=== PATIENT | female | born 1985 | race Caucasian/White ===

== ENCOUNTER 2016-10-09 18:41 | Emergency (ER) ==
[2016-10-09 18:46] VITALS: BP 127/84; TEMP 98.4; BMI 27.4
--- NOTE | 2016-10-09 19:21 | ED.PDOC ---
General ED Provider: Dr. LEELA DALTON Chief Complaint: Non-specific Complaint Stated Complaint: patient took marijuna, today, ever since she is not feeling good, week, tired. Time Seen by Physician: 18:30 Mode of Arrival: Ambulance Information Source: Patient Nursing and Triage Documentation Reviewed and Agree: Yes Neurological Complaint Exam - Altered Mental Status Complaint/Exam Current Mental Status: Unresponsiveness, Confusion Onset: Sudden Symptoms Are: Resolved Timing: Intermittent Episodes Lasting: Minutes Initial Severity: Moderate Current Severity: Mild Eye Deviation Present: No Character: Reports: Confusion, Agitation, Responsiveness, Lethargy Aggravating: Reports: Drug abuse, Environmental exposure Alleviating: Reports: None Associated Signs and Symptoms: Reports: Weakness, Headache. Denies: Dizziness, Fever, Illness, Nuchal rigidity, Seizure, Nausea, Vomiting, Recently depressed, Trauma Cardiac Risk Factors: Reports: None CVA Risk Factors: Reports: None Related Surgical History: Reports: None Carotid Bruit Present: No Nystagmus Present: No Gag Reflex Present: Yes Meningeal Signs Positive: No Focal Weakness: Present: None Focal Sensory Loss: Present: None Gait: Unable Romberg Test Positive: No Babinski Sign: Negative Right, Negative Left Signs of Injury: Present: Normal findings Differential Diagnoses: Metabolic Disorder, Hypoglycemia, Overdose Review of Systems - Review Of Systems Constitutional: Reports: No symptoms Eyes: Reports: No symptoms Ears, Nose, Mouth, Throat: Reports: No symptoms Respiratory: Reports: No symptoms Cardiac: Reports: No symptoms GI: Reports: No symptoms : Reports: No symptoms Musculoskeletal: Reports: No symptoms Skin: Reports: No symptoms Neurological: Reports: Headache, Weakness Endocrine: Reports: No symptoms Hematologic/Lymphatic: Reports: No symptoms All Other Systems: Reviewed and Negative Past Medical History - Past Medical History Previously Healthy: Yes Endocrine: Reports: None Cardiovascular: Reports: None Respiratory: Reports: None Hematological: Reports: None Gastrointestinal: Reports: None Genitourinary: Reports: None Neuro/Psych: Reports: None Musculoskeletal: Reports: None Cancer: Reports: None Last Menstrual Period: LAST MONTH - Surgical History General Surgical History: Reports: None - Family History Family History: Reports: None - Social History Smoking Status: Never smoker Hx Substance Use: No Alcohol Screening: None Physical Exam - Physical Exam Appearance: Ill-appearing, Obese Eyes: TRU, EOMI ENT: Ears normal, Nose normal, Oropharynx normal Respiratory: Airway patent, Breath sounds clear, Breath sounds equal, Respirations nonlabored Cardiovascular: RRR, Pulses normal, No rub, No murmur GI/: Soft, Nontender, No masses, Bowel sounds normal, No Organomegaly Musculoskeletal: Normal strength, ROM intact, No edema, No calf tenderness Skin: Warm, Dry, Normal color Neurological: Sensation intact, Alert to verbal Psychiatric: Affect appropriate, Mood appropriate Interpretation - Radiology Interpretation Radiology Interpretation By: Radiologist Radiology Results: Negative Exam Interpreted: CT Scan Critical Care Note - Critical Care Note Total Time (mins): 0 Course - Course Hematology/Chemistry: 10/09/16 19:45 10/09/16 19:45 Orders, Labs, Meds: Lab Review 10/09/16 10/09/16 19:45 19:48 WBC 10.23 H RBC 5.00 Hgb 14.2 Hct 46.8 MCV 93.6 MCH 28.4 MCHC 30.3 L RDW Coeff of Consuelo 12.5 Plt Count 263 Immature Gran % (Auto) 0.3 Neut % (Auto) 59.2 Lymph % (Auto) 31.1 [place] % (Auto) 6.5 Eos % (Auto) 1.5 Baso % (Auto) 1.4 Immature Gran # (Auto) 0.0 Neut # 6.1 Lymph # 3.2 [place] # 0.7 Eos # 0.2 Baso # 0.1 Sodium 141 Potassium 3.7 Chloride 106 Carbon Dioxide 24 Anion Gap 14.7 BUN 8 Creatinine 0.81 Estimated GFR (MDRD) 84.00 BUN/Creatinine Ratio 9.87 Glucose 100 Calcium 9.1 Total Bilirubin 0.49 AST 26 ALT 32 Alkaline Phosphatase 107 H Total Protein 7.5 Albumin 4.0 Globulin 3.5 Albumin/Globulin Ratio 1.14 Urine Color Yellow Urine Clarity Cloudy Urine pH 7.5 Ur Specific [place] 1.020 Urine Protein Negative Urine Glucose (UA) Negative Urine Ketones Trace Urine Blood Negative Urine Nitrite Negative Urine Bilirubin Negative Urine Urobilinogen 1.0 Ur Leukocyte Esterase Trace Ur Squamous Epith Cells 2-5 Amorphous Sediment 1+ Urine Bacteria 1+ Urine Test Negative Urine Opiates Screen Negative Ur Oxycodone Screen Negative Urine Methadone Screen Negative Ur Propoxyphene Screen Negative Ur Barbiturates Screen Negative U Tricyclic Antidepress Negative Ur Phencyclidine Scrn Negative Ur Amphetamine Screen Negative U Methamphetamines Scrn Negative U Benzodiazepines Scrn Negative Urine Cocaine Screen Negative U Cannabinoids Screen Positive Orders Category Date Time Status CBC W/ AUTO DIFF Stat LAB 10/09/16 19:45 Completed COMPREHENSIVE METABOLIC PANEL Stat LAB 10/09/16 19:45 Completed DRUG SCREEN, URINE, RAPID Stat LAB 10/09/16 19:48 Completed UA [URINALYSIS C & S IF INDICATED] Stat LAB 10/09/16 19:48 Completed URINE CULTURE Stat LAB 10/09/16 20:04 Received URINE Stat LAB 10/09/16 19:[address] HEAD W/O CONTRAST Stat RADS 10/09/16 19:16 Completed Vital Signs: Temp Pulse Resp BP Pulse Ox 10/09/16 18:42 98.4 F 104 H 28 H 127/84 97 Departure - Departure Time of Disposition: 21:58 Disposition: HOME SELF-CARE Discharge Problem: Substance abuse Instructions: Polysubstance Abuse (ED) Condition: Stable Pt referred to PMD for follow-up: Yes Additional Instructions: advised to increase hydration. Allergies/Adverse Reactions: Allergies No Known Allergies Allergy (Unverified 10/09/16 18:46) Home Medications: Ambulatory Orders 1 [No Reported Medications] 10/09/16 Disposition Discussed With: Patient, Family
[2016-10-09 19:52] LABS: BASOPHILS # (AUTO) 0.1 K/uL (0-0.2); BASOPHILS % (AUTO) 1.4 % (0.0-3.0); EOSINOPHILS # (AUTO) 0.2 K/ul (0.0-0.7); EOSINOPHILS % (AUTO) 1.5 % (0.0-7.0); HEMATOCRIT 46.8 % (37.0-47.0); HEMOGLOBIN 14.2 g/dl (12.0-16.0); IMMATURE GRANULOCYTE % (AUTO) 0.3 % (0.0-5.0); LYMPHOCYTES # (AUTO) 3.2 K/uL (0.60-3.4); LYMPHOCYTES % (AUTO) 31.1 (10.0-50.0); MEAN CORPUSCULAR HEMOGLOBIN 28.4 pg (27.0-31.0); MEAN CORPUSCULAR HGB CONC 30.3 (31.8-35.4); MEAN CORPUSCULAR VOLUME 93.6 fl (81.0-99.0); MONOCYTES # (AUTO) 0.7 K/uL (0.4-2.0); MONOCYTES % (AUTO) 6.5 (0-10); NEUTROPHILS # (AUTO) 6.1 K/ul (2.0-6.9); NEUTROPHILS % (AUTO) 59.2; PLATELET COUNT 263 10^3/uL (140-440); WHITE BLOOD COUNT 10.23 K/ul (4.6-10.2)
[2016-10-09 19:58] LABS: BILIRUBIN,URINE Negative (NEGATIVE); KETONES,URINE Trace (NEGATIVE); LEUKOCYTE ESTERASE ,URINE Trace (NEGATIVE); NITRITE,URINE Negative (NEGATIVE); PH,URINE 7.5 (5-9); PROTEIN,URINE Negative (NEGATIVE); URINE, BLOOD Negative (NEGATIVE)
[2016-10-09 20:04] LABS: ADD URINE MICROSCOPIC YES; BACTERIA,URINE 1+ (NOT PRESENT)
[2016-10-09 20:05] LABS: URINE PREGNANCY INTERNAL QC INTERNAL QC VALID
[2016-10-09 20:13] LABS: ALBUMIN/GLOBULIN RATIO 1.14; ANION GAP 14.7; BILIRUBIN,TOTAL 0.49 mg/dL (0.00-1.20); BUN/CREATININE RATIO 9.87; CALCIUM 9.1 mg/dL (8.2-10.2); CREATININE 0.81 mg/dL (0.60-1.30); POTASSIUM 3.7 mmol/L (3.5-5.10); TOTAL PROTEIN 7.5 g/dL (6.4-8.2)
--- NOTE | 2016-10-09 20:25 | CT ---
Exam: Head CT. Date: 10/09/2016. Comparison: None. HISTORY: Altered mental status. TECHNIQUE: Helical scan of the brain was performed. FINDINGS: The calvarium is intact. The paranasal sinuses and mastoid air cells are clear. The brainstem and cerebellum are within normal limits. No abnormal intra or extra-axial fluid, mass or mass effect is present. There is no midline shift or hydrocephalus. No large vessel infarct or hemorrhages identified. The olmstead-white interface is maintained. Impression: No acute intracranial findings.
[2016-10-09 20:51] LABS: COCAIN SCREEN,URINE NEGATIVE (NEGATIVE)
== END 2016-10-09 22:05 | disposition home or self-care (01) ==
LOC: ED 18:41
DX: F12.10 Cannabis abuse, uncomplicated (principal); R53.1 Weakness; R53.83 Other fatigue
CPT/HCPCS: 36415; 80053; 80306; 81001; 81025; 85025; 87086; 99284

== ENCOUNTER 2017-06-22 09:23 | Emergency (ER) ==
[2017-06-22 09:24] VITALS: BMI 27.4
[2017-06-22 09:26] VITALS: BP 126/73; TEMP 96.3
--- NOTE | 2017-06-22 10:45 | ED.PDOC ---
General ED Provider: Dr. TYRONE PENA Chief Complaint: Tooth Problem Stated Complaint: DENTAL PAIN Time Seen by Physician: 09:30 (DENTAL PAIN) Mode of Arrival: Walk-In Information Source: Patient Exam Limitations: No limitations Nursing and Triage Documentation Reviewed and Agree: Yes EENT Complaint Exam - Dental/Oral Complaint/Exam Mechanism of Injury: No known trauma Symptoms Are: Still present (1 DAY) Timing: Constant Initial Severity: Moderate Current Severity: Moderate Location: SEE BELOW Character: Reports: Aching, Throbbing Aggravating: Reports: None Alleviating: Reports: None Associated Signs and Symptoms: Denies: Swelling, Discharge, Fever, Foul odor, Foul taste in mouth Related History: Reports: Similar episode Cardiac Risk Factors: Reports: None Dental/Oral Surgical History: Reports: None Tooth Findings: Present: Gross caries, Dental fracture Cervical Lymphadenopathy Present: No Facial Swelling Present: No Bleeding Present: No Oropharynx Findings: Absent: Clots, Active bleeding Septal Hematoma: No Foreign Body Present: No Dysphagia Present: No Drooling Present: No Asymmetrical Tonsillar Swelling Present: No Uvula Midline: Yes Marie-tonsillar Fluctuence: No Trismus Present: No Palatal Petechiae Present: No Scarlatinaform Rash Present: No Teeth Picture: 1 - BROKEN Differential Diagnoses: Dental Caries Review of Systems - Review Of Systems Constitutional: Reports: No symptoms Eyes: Reports: No symptoms Ears, Nose, Mouth, Throat: Reports: No symptoms Respiratory: Reports: No symptoms Cardiac: Reports: No symptoms GI: Reports: No symptoms : Reports: No symptoms Musculoskeletal: Reports: No symptoms Skin: Reports: No symptoms Neurological: Reports: No symptoms Endocrine: Reports: No symptoms Hematologic/Lymphatic: Reports: No symptoms All Other Systems: Reviewed and Negative Past Medical History - Past Medical History Previously Healthy: Yes Endocrine: Reports: None Cardiovascular: Reports: None Respiratory: Reports: None Hematological: Reports: None Gastrointestinal: Reports: None Genitourinary: Reports: None Neuro/Psych: Reports: None Musculoskeletal: Reports: None Cancer: Reports: None Last Menstrual Period: [id number] - Surgical History General Surgical History: Reports: None - Family History Family History: Reports: None - Social History Smoking Status: Never smoker Hx Substance Use: No Alcohol Screening: None - Immunizations Tetanus Shot up to Date: Yes Physical Exam - Physical Exam Appearance: Well-appearing, No pain distress, Well-nourished Eyes: TRU, EOMI, Conjunctiva clear ENT: Ears normal, Nose normal, Oropharynx normal Respiratory: Airway patent, Breath sounds clear, Breath sounds equal, Respirations nonlabored Cardiovascular: RRR, Pulses normal, No rub, No murmur GI/: Soft, Nontender, No masses, Bowel sounds normal, No Organomegaly Musculoskeletal: Normal strength, ROM intact, No edema, No calf tenderness Skin: Warm, Dry, Normal color Neurological: Sensation intact, Motor intact, Reflexes intact, Cranial nerves intact, Alert, Oriented Psychiatric: Affect appropriate, Mood appropriate Critical Care Note - Critical Care Note Total Time (mins): 0 Course - Course Vital Signs: Temp Pulse Resp BP Pulse Ox 06/22/17 09:24 96.3 F L 95 H 18 126/73 98 Departure - Departure Time of Disposition: 10:46 Disposition: HOME SELF-CARE Discharge Problem: Toothache Instructions: Toothache (ED), Dental Caries (GEN) Condition: Good Pt referred to PMD for follow-up: Yes Additional Instructions: Please call your Family Physician as soon as possible to schedule a follow-up appointment. Prescriptions: Amoxicillin 500 mg PO Q8HR #21 tablet Hydrocodone/Acetaminophen [[place] 10-325 Tablet] 1 each PO Q8HR #14 tablet Allergies/Adverse Reactions: Allergies No Known Allergies Allergy (Unverified 06/22/17 09:26) Home Medications: Ambulatory Orders Amoxicillin 500 mg PO Q8HR #21 tablet 06/22/17 Hydrocodone/Acetaminophen [[place] 10-325 Tablet] 1 each PO Q8HR #14 tablet
== END 2017-06-22 10:50 | disposition home or self-care (01) ==
LOC: ED 09:23
DX: K08.89 Other specified disorders of teeth and supporting structures (principal); S02.5XXA Fracture of tooth (traumatic), initial encounter for closed fracture; K02.7 Dental root caries
CPT/HCPCS: 99282

== ENCOUNTER 2017-07-09 11:14 | Emergency (ER) ==
[2017-07-09 11:18] VITALS: BP 123/83; TEMP 97.1; BMI 28.1
[2017-07-09 11:41] LABS: BASOPHILS # (AUTO) 0.1 K/uL (0-0.2); BASOPHILS % (AUTO) 1.4 % (0.0-3.0); EOSINOPHILS # (AUTO) 0.3 K/ul (0.0-0.7); EOSINOPHILS % (AUTO) 4.7 % (0.0-7.0); HEMATOCRIT 41.5 % (37.0-47.0); HEMOGLOBIN 14.4 g/dl (12.0-16.0); IMMATURE GRANULOCYTE % (AUTO) 0.3 % (0.0-5.0); LYMPHOCYTES # (AUTO) 2.3 K/uL (0.60-3.4); LYMPHOCYTES % (AUTO) 33.5 (10.0-50.0); MEAN CORPUSCULAR HEMOGLOBIN 29.8 pg (27.0-31.0); MEAN CORPUSCULAR HGB CONC 34.7 (31.8-35.4); MEAN CORPUSCULAR VOLUME 85.9 fl (81.0-99.0); MONOCYTES # (AUTO) 0.4 K/uL (0.4-2.0); NEUTROPHILS # (AUTO) 3.8 K/ul (2.0-6.9); NEUTROPHILS % (AUTO) 54.1; PLATELET COUNT 259 10^3/uL (140-440); RED BLOOD COUNT 4.83 10^6/ul (4.20-5.40); WHITE BLOOD COUNT 6.98 K/ul (4.6-10.2)
[2017-07-09 11:51] LABS: BILIRUBIN,URINE Negative (NEGATIVE); KETONES,URINE Negative (NEGATIVE); LEUKOCYTE ESTERASE ,URINE Trace (NEGATIVE); NITRITE,URINE Negative (NEGATIVE); PH,URINE 5.5 (5-9); PROTEIN,URINE Negative (NEGATIVE); URINE, BLOOD Negative (NEGATIVE)
[2017-07-09 11:57] LABS: SERUM PREGNANCY INTERNAL QC INTERNAL QC VALID
[2017-07-09 12:02] LABS: ALBUMIN 3.8 g/dL (3.4-5.0); ALBUMIN/GLOBULIN RATIO 1.03; ANION GAP 14.7; BILIRUBIN,TOTAL 0.48 mg/dL (0.00-1.20); BUN/CREATININE RATIO 11.84; CALCIUM 9.1 mg/dL (8.2-10.2); CREATININE 0.76 mg/dL (0.60-1.30); POTASSIUM 3.7 mmol/L (3.5-5.10); TOTAL PROTEIN 7.5 g/dL (6.4-8.2)
[2017-07-09 12:06] LABS: ADD URINE MICROSCOPIC YES; BACTERIA,URINE TRACE (NOT PRESENT)
--- NOTE | 2017-07-09 12:40 | ED.PDOC ---
General ED Provider: Dr. TYRONE PENA Chief Complaint: Stated Complaint: vomiting Time Seen by Physician: 11:30 (LMP/ 2 MONTHS AGO) Mode of Arrival: Walk-In Information Source: Patient Exam Limitations: No limitations Referred to ED by: Other (SEEN WITH FATIMAH AT ALL TIMES ) Nursing and Triage Documentation Reviewed and Agree: Yes (7 days of weakness , vomiting ) Review of Systems - Review Of Systems Constitutional: Reports: Malaise, Weakness Eyes: Reports: No symptoms Ears, Nose, Mouth, Throat: Reports: No symptoms Respiratory: Reports: No symptoms Cardiac: Reports: No symptoms GI: Reports: Vomiting : Reports: No symptoms Musculoskeletal: Reports: No symptoms Skin: Reports: No symptoms Neurological: Reports: No symptoms Endocrine: Reports: No symptoms Hematologic/Lymphatic: Reports: No symptoms All Other Systems: Reviewed and Negative Past Medical History - Past Medical History Previously Healthy: Yes Endocrine: Reports: None Cardiovascular: Reports: None Respiratory: Reports: None Hematological: Reports: None Gastrointestinal: Reports: None Genitourinary: Reports: None Neuro/Psych: Reports: None Musculoskeletal: Reports: None Cancer: Reports: None Last Menstrual Period: 05/15 - Surgical History General Surgical History: Reports: None - Family History Family History: Reports: None - Social History Smoking Status: Never smoker Hx Substance Use: No Alcohol Screening: None Physical Exam - Physical Exam Appearance: Well-appearing, No pain distress, Well-nourished Eyes: TRU, EOMI, Conjunctiva clear ENT: Ears normal, Nose normal, Oropharynx normal Respiratory: Airway patent, Breath sounds clear, Breath sounds equal, Respirations nonlabored Cardiovascular: RRR, Pulses normal, No rub, No murmur GI/: Soft, Nontender, No masses, Bowel sounds normal, No Organomegaly Musculoskeletal: Normal strength, ROM intact, No edema, No calf tenderness Skin: Warm, Dry, Normal color Neurological: Sensation intact, Motor intact, Reflexes intact, Cranial nerves intact, Alert, Oriented Psychiatric: Affect appropriate, Mood appropriate Critical Care Note - Critical Care Note Total Time (mins): 0 Course - Course Hematology/Chemistry: 07/09/17 11:35 07/09/17 11:35 Orders, Labs, Meds: Lab Review 07/09/17 07/09/17 07/09/17 11:35 11:35 11:35 WBC 6.98 RBC 4.83 Hgb 14.4 Hct 41.5 MCV 85.9 MCH 29.8 MCHC 34.7 RDW Coeff of Consuelo 12.8 Plt Count 259 Immature Gran % (Auto) 0.3 Neut % (Auto) 54.1 Lymph % (Auto) 33.5 [place] % (Auto) 6.0 Eos % (Auto) 4.7 Baso % (Auto) 1.4 Immature Gran # (Auto) 0.0 Neut # 3.8 Lymph # 2.3 [place] # 0.4 Eos # 0.3 Baso # 0.1 Sodium 139 Potassium 3.7 Chloride 105 Carbon Dioxide 23 Anion Gap 14.7 BUN 9 Creatinine 0.76 Estimated GFR (MDRD) 90.00 BUN/Creatinine Ratio 11.84 Glucose 95 Calcium 9.1 Total Bilirubin 0.48 AST 40 H ALT 133 H Alkaline Phosphatase 123 H Total Protein 7.5 Albumin 3.8 Globulin 3.7 Albumin/Globulin Ratio 1.03 Serum , Qual Negative Urine Color Urine Clarity Urine pH Ur Specific [place] Urine Protein Urine Glucose (UA) Urine Ketones Urine Blood Urine Nitrite Urine Bilirubin Urine Urobilinogen Ur Leukocyte Esterase Urine Microscopic WBC Ur Squamous Epith Cells Urine Bacteria 07/09/17 11:35 WBC RBC Hgb Hct MCV MCH MCHC RDW Coeff of Consuelo Plt Count Immature Gran % (Auto) Neut % (Auto) Lymph % (Auto) [place] % (Auto) Eos % (Auto) Baso % (Auto) Immature Gran # (Auto) Neut # Lymph # [place] # Eos # Baso # Sodium Potassium Chloride Carbon Dioxide Anion Gap BUN Creatinine Estimated GFR (MDRD) BUN/Creatinine Ratio Glucose Calcium Total Bilirubin AST ALT Alkaline Phosphatase Total Protein Albumin Globulin Albumin/Globulin Ratio Serum , Qual Urine Color Yellow Urine Clarity Clear Urine pH 5.5 Ur Specific [place] 1.010 Urine Protein Negative Urine Glucose (UA) Negative Urine Ketones Negative Urine Blood Negative Urine Nitrite Negative Urine Bilirubin Negative Urine Urobilinogen 0.2 Ur Leukocyte Esterase Trace Urine Microscopic WBC 0-2 Ur Squamous Epith Cells 0-2 Urine Bacteria Trace Orders Category Date Time Status ACETAMINOPHEN Stat LAB 07/09/17 12:37 Ordered ASPIRIN LEVEL [SALICYLATE] Stat LAB 07/09/17 12:37 Ordered BLOOD CULTURE (ED ONLY) Stat LAB 07/09/17 11:55 Received CBC W/ AUTO DIFF Stat LAB 07/09/17 11:35 Completed COMPREHENSIVE METABOLIC PANEL Stat LAB 07/09/17 11:35 Completed HEPATITIS PANEL, ACUTE Stat LAB 07/09/17 12:34 Ordered SERUM Stat LAB 07/09/17 11:35 Completed URINALYSIS C & S IF INDICATED Stat LAB 07/09/17 11:35 Completed Vital Signs: Temp Pulse Resp BP Pulse Ox 07/09/17 11:15 97.1 F L 109 H 16 123/83 98 Departure - Departure Time of Disposition: 12:40 (asa/tylenol level checked for 3 tylenols taken /24 hrs ) Disposition: HOME SELF-CARE Discharge Problem: Abnormal liver enzymes Instructions: Acute Nausea and Vomiting (ED) Condition: Good Pt referred to PMD for follow-up: Yes Additional Instructions: Please call your Family Physician as soon as possible to schedule a follow-up appointment. Allergies/Adverse Reactions: Allergies No Known Allergies Allergy (Verified 07/09/17 11:19) Home Medications: Ambulatory Orders 1 [No Reported Medications] 07/09/17
[2017-07-09 13:09] LABS: ACETAMINOPHEN < 3 ug/ml (10-30); SALICYLATE < 5.0 mg/dL (2.8-20.0)
== END 2017-07-09 13:18 | disposition home or self-care (01) ==
LOC: ED 11:14
DX: R11.2 Nausea with vomiting, unspecified (principal); R94.5 Abnormal results of liver function studies; R53.1 Weakness
CPT/HCPCS: 36415; 80053; 80074; 80307; 81001; 84703; 85025; 87040; 99283

== ENCOUNTER 2017-07-25 12:33 | Outpatient (CLI) ==
[2017-07-25 13:29] LABS: ALBUMIN 3.9 g/dL (3.4-5.0); ALBUMIN/GLOBULIN RATIO 1.08; ANION GAP 11.7; BILIRUBIN,TOTAL 0.7 mg/dL (0.00-1.20); BUN/CREATININE RATIO 11.68; CALCIUM 9.9 mg/dL (8.2-10.2); CREATININE 0.77 mg/dL (0.60-1.30); POTASSIUM 3.7 mmol/L (3.5-5.10); TOTAL PROTEIN 7.5 g/dL (6.4-8.2)
== END 2017-07-25 12:34 | disposition home or self-care (01) ==
LOC: LAB 12:33
PROVIDERS: ATTEND Nurse Practitioner Family
DX: R53.83 Other fatigue (principal); R79.89 Other specified abnormal findings of blood chemistry
CPT/HCPCS: 36415; 80053; 82306; 82607; 82977

== ENCOUNTER 2017-08-28 08:12 | Outpatient (CLI) ==
--- NOTE | 2017-08-28 09:05 | US ---
EXAM: ULTRASOUND ABDOMEN LIMITED HISTORY: Abnormal serum enzymes FINDINGS: Ultrasound abdomen, limited. Davis-scale ultrasound and color Doppler was performed. Live r size was within normal limits at 12.4 cm. Liver parenchyma demonstrates slight increased sound att enuation which could indicate early fatty infiltration. No focal hepatic lesion or evidence of intrah epatic biliary dilatation was identified. The main portal vein is patent and hepatopedal. No gallstones or gallbladder sludge identified. Gallbladder wall thickness was normal at 0.24 cm. C ommon bile duct diameter was normal at 0.28 cm. The visualized pancreas was within normal limits. N o ascites was seen. IMPRESSION: 1. Possible mild fatty infiltration of the liver. 2. No gallbladder pathology identified.
== END 2017-08-28 08:13 | disposition home or self-care (01) ==
LOC: RAD 08:12
PROVIDERS: ATTEND Nurse Practitioner Family
DX: R74.8 Abnormal levels of other serum enzymes (principal); R11.2 Nausea with vomiting, unspecified

== ENCOUNTER 2018-03-25 09:35 | Outpatient (CLI) ==
--- NOTE | 2018-03-25 10:28 | DI ---
EXAM: Two views of the right hip. History: Right hip pain. Findings: No acute fracture or dislocation. No abnormal calcifications or radiopaque foreign bodies. The right hip joint space is preserved. Impression: No acute osseous abnormality.
== END 2018-03-25 09:36 | disposition home or self-care (01) ==
LOC: RAD 09:35
PROVIDERS: ATTEND Nurse Practitioner Family
DX: M25.551 Pain in right hip (principal)

== ENCOUNTER 2018-07-27 11:23 | Emergency (ER) ==
[2018-07-27 11:26] VITALS: BP 129/90; TEMP 97.8; BMI 25.1
--- NOTE | 2018-07-27 11:49 | ED.PDOC ---
General ED Provider: Dr. KIRTI WHALEY Chief Complaint: Abdominal Pain Stated Complaint: My stomach is aching. May be I am . "I rearly have bowel movements since I have IBS. I think the last BM was 2 weeks ago. Time Seen by Physician: 11:53 Mode of Arrival: Walk-In Information Source: Patient Exam Limitations: No limitations Primary Care Provider: TENZIN TANG Seen Within Last 72 Hours for Same Complaint By: ED Nursing and Triage Documentation Reviewed and Agree: No Does patient meet sepsis criteria?: No System Inflammatory Response Syndrome: Not Applicable Sepsis Protocol: For patient's 13 years and over: Temp is 96.8 and below OR 101 and greater Pulse >90 BPM Resp >20/minute Acutely Altered Mental Status Are patient's symptoms suggestive of a new infection, such as: -Pneumonia -Skin, Soft Tissue -Endocarditis -UTI -Bone, Joint Infection -Implantable Device -Acute Abdominal Infection -Wound Infection -Meningitis -Blood Stream Catheter Infection -Unknown Review of Systems - Review Of Systems Constitutional: Reports: No symptoms Eyes: Reports: No symptoms Ears, Nose, Mouth, Throat: Reports: No symptoms Respiratory: Reports: No symptoms Cardiac: Reports: No symptoms GI: Reports: Abdominal pain, Nausea, Vomiting : Reports: No symptoms Musculoskeletal: Reports: No symptoms Skin: Reports: No symptoms Neurological: Reports: Anxiety Endocrine: Reports: No symptoms Hematologic/Lymphatic: Reports: No symptoms All Other Systems: Reviewed and Negative Past Medical History - Past Medical History Previously Healthy: Yes Endocrine: Reports: None Cardiovascular: Reports: None Respiratory: Reports: None Hematological: Reports: None Gastrointestinal: Reports: None Genitourinary: Reports: None Neuro/Psych: Reports: Anxiety, Depression Musculoskeletal: Reports: None Cancer: Reports: None Last Menstrual Period: 2 months late - Surgical History General Surgical History: Reports: None - Family History Family History: Reports: None - Social History Smoking Status: Never smoker Hx Substance Use: No Alcohol Screening: None Physical Exam - Physical Exam Appearance: Ill-appearing Ill-appearing: Mild Neck: Supple Respiratory: Airway patent, Breath sounds clear, Breath sounds equal, Respirations nonlabored Cardiovascular: RRR, Pulses normal, No rub, No murmur GI/: Soft, Tender (mild but no rebound ) Musculoskeletal: Normal strength, ROM intact, No edema, No calf tenderness Skin: Warm, Dry, Normal color Neurological: Sensation intact, Motor intact, Cranial nerves intact, Alert, Oriented Psychiatric: Anxious Physician Notification - Case Discussed Physician Notified: Dr Kimble Time of Notification: 14:26 Physician Notified: Dr Rich Time of Notification: 14:00 Critical Care Note - Critical Care Note Total Time (mins): 0 Course - Course Hematology/Chemistry: 07/27/18 11:45 07/27/18 11:45 Orders, Labs, Meds: Lab Review 07/27/18 07/27/18 07/27/18 11:45 11:45 11:45 WBC 8.92 RBC 4.85 Hgb 13.9 Hct 40.4 MCV 83.3 MCH 28.7 MCHC 34.4 RDW Coeff of Consuelo 12.0 Plt Count 210 Immature Gran % (Auto) 0.2 Neut % (Auto) 67.5 Lymph % (Auto) 24.1 [place] % (Auto) 5.7 Eos % (Auto) 1.6 Baso % (Auto) 0.9 Immature Gran # (Auto) 0.0 Neut # (Auto) 6.0 Lymph # (Auto) 2.2 [place] # (Auto) 0.5 Eos # (Auto) 0.1 Baso # (Auto) 0.1 Sodium 135.5 Potassium 3.20 L Chloride 102.5 Carbon Dioxide 23.7 Anion Gap 12.50 BUN 6.2 L Creatinine 0.60 Estimated GFR (MDRD) 117.00 BUN/Creatinine Ratio 10.33 Glucose 97.1 Calcium 9.61 Total Bilirubin 0.70 AST 16.6 ALT 16.3 Alkaline Phosphatase 72.6 Total Protein 8.16 Albumin 4.73 Globulin 3.43 Albumin/Globulin Ratio 1.37 Amylase 76.3 Lipase 31.1 HCG, Quant Urine Color Yellow Urine Clarity Clear Urine pH 6.5 Ur Specific [place] 1.020 Urine Protein Trace Urine Glucose (UA) Negative Urine Ketones Negative Urine Blood Negative Urine Nitrite Negative Urine Bilirubin 1+ Urine Urobilinogen 0.2 Ur Leukocyte Esterase Negative Ur Squamous Epith Cells 2-5 Urine Bacteria Trace Urine Mucus 3+ Urine Test 07/27/18 07/27/18 11:45 11:45 WBC RBC Hgb Hct MCV MCH MCHC RDW Coeff of Consuelo Plt Count Immature Gran % (Auto) Neut % (Auto) Lymph % (Auto) [place] % (Auto) Eos % (Auto) Baso % (Auto) Immature Gran # (Auto) Neut # (Auto) Lymph # (Auto) [place] # (Auto) Eos # (Auto) Baso # (Auto) Sodium Potassium Chloride Carbon Dioxide Anion Gap BUN Creatinine Estimated GFR (MDRD) BUN/Creatinine Ratio Glucose Calcium Total Bilirubin AST ALT Alkaline Phosphatase Total Protein Albumin Globulin Albumin/Globulin Ratio Amylase Lipase HCG, Quant 141972.000 Urine Color Urine Clarity Urine pH Ur Specific [place] Urine Protein Urine Glucose (UA) Urine Ketones Urine Blood Urine Nitrite Urine Bilirubin Urine Urobilinogen Ur Leukocyte Esterase Ur Squamous Epith Cells Urine Bacteria Urine Mucus Urine Test Positive Orders Category Date Time Status AMYLASE Stat LAB 07/27/18 11:45 Completed CBC W/ AUTO DIFF Stat LAB 07/27/18 11:45 Completed COMPREHENSIVE METABOLIC PANEL Stat LAB 07/27/18 11:45 Completed HCG,QUANTITATIVE Stat LAB 07/27/18 11:45 Completed LIPASE Stat LAB 07/27/18 11:45 Completed URINALYSIS C & S IF INDICATED Stat LAB 07/27/18 11:45 Completed URINE Stat LAB 07/27/18 11:45 Completed Vital Signs: Temp Pulse Resp BP Pulse Ox 07/27/18 11:23 97.8 F 102 H 16 129/90 98 Departure - Departure Time of Disposition: 14:26 Disposition: TSF SHORT-TRM HOSP Discharge Problem: Abdominal pain, Abdominal pain affecting Condition: Stable Pt referred to PMD for follow-up: Yes IPMP verified?: No Allergies/Adverse Reactions: Allergies No Known Allergies Allergy (Verified 07/27/18 11:26) Home Medications: Ambulatory Orders 1 [No Reported Medications] 07/09/17 Disposition Discussed With: Patient
[2018-07-27 12:00] LABS: URINE PREGNANCY TEST POSITIVE (NEGATIVE)
== END 2018-07-27 14:41 | disposition short-term general hospital (02) ==
LOC: ED 11:23
DX: R10.9 Unspecified abdominal pain (principal); R11.2 Nausea with vomiting, unspecified; F41.9 Anxiety disorder, unspecified
CPT/HCPCS: 36415; 80053; 81001; 81025; 82150; 83690; 84702; 85025; 99285

== ENCOUNTER 2018-07-27 14:42 | Outpatient (CLI) ==
[2018-07-27 11:26] VITALS: BMI 25.1
== END 2018-07-27 14:58 | disposition short-term general hospital (02) ==
LOC: AMBL 14:42
PROVIDERS: ATTEND Internal Medicine Geriatric Medicine
DX: R10.84 Generalized abdominal pain (principal)

== ENCOUNTER 2018-08-27 09:34 | Emergency (ER) | payer OTHER ==
[2018-08-27 09:40] VITALS: BP 123/71; TEMP 98.3; BMI 25.8
--- NOTE | 2018-08-27 10:05 | ED.PDOC ---
General ED Provider: Dr. SHITAL COUGHLIN Chief Complaint: Nausea/Vomiting Stated Complaint: States 2 months and has been experiencing multiple episodes of vomiting daily and during the night. Can not put up with it any longer. NO care as of yet. Is suposed to seen some one at [facility] next week. Is with uncertain exact LMP (possibly in April. Denies complications with first . Time Seen by Physician: 09:45 Mode of Arrival: Walk-In Information Source: Patient Exam Limitations: No limitations Primary Care Provider: TENZIN TANG Nursing and Triage Documentation Reviewed and Agree: Yes Does patient meet sepsis criteria?: No System Inflammatory Response Syndrome: Not Applicable Sepsis Protocol: For patient's 13 years and over: Temp is 96.8 and below OR 101 and greater Pulse >90 BPM Resp >20/minute Acutely Altered Mental Status Are patient's symptoms suggestive of a new infection, such as: -Pneumonia -Skin, Soft Tissue -Endocarditis -UTI -Bone, Joint Infection -Implantable Device -Acute Abdominal Infection -Wound Infection -Meningitis -Blood Stream Catheter Infection -Unknown 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 Complaint Exam - Labor/Delivery Complaint/Exam Onset/Duration: several days Symptoms Are: Still present Timing: Intermittent Initial Severity: Moderate Current Severity: Moderate Location: Reports: Mid Abdomen Associated Signs and Symptoms: Reports: Vomiting, Gestational Diabetes Vaginal Bleeding: None Expected Date of Delivery: 02/12/19 Related Surgical History: None External Exam: Present: Normal findings Review of Systems - Review Of Systems Constitutional: Reports: No symptoms Eyes: Reports: No symptoms Ears, Nose, Mouth, Throat: Reports: No symptoms Respiratory: Reports: No symptoms Cardiac: Reports: No symptoms GI: Reports: Nausea, Vomiting : Reports: No symptoms Musculoskeletal: Reports: No symptoms Skin: Reports: No symptoms Neurological: Reports: No symptoms Endocrine: Reports: No symptoms Hematologic/Lymphatic: Reports: No symptoms All Other Systems: Reviewed and Negative Past Medical History - Past Medical History Previously Healthy: Yes Endocrine: Reports: None Cardiovascular: Reports: None Respiratory: Reports: None Hematological: Reports: None Gastrointestinal: Reports: None Genitourinary: Reports: None Neuro/Psych: Reports: Anxiety, Depression Musculoskeletal: Reports: None Cancer: Reports: None Last Menstrual Period: april - Surgical History General Surgical History: Reports: None - Family History Family History: Reports: None - Social History Smoking Status: Never smoker Hx Substance Use: No Alcohol Screening: None Physical Exam - Physical Exam Appearance: Well-appearing, No pain distress, Well-nourished Ill-appearing: None Pain Distress: None Eyes: TRU, EOMI, Conjunctiva clear ENT: Ears normal, Nose normal, Oropharynx normal Respiratory: Airway patent, Breath sounds clear, Breath sounds equal, Respirations nonlabored Cardiovascular: RRR, Pulses normal, No rub, No murmur GI/: Soft, Nontender, No masses, Bowel sounds normal, No Organomegaly Musculoskeletal: Normal strength, ROM intact, No edema, No calf tenderness Skin: Warm, Dry, Normal color Neurological: Sensation intact, Motor intact, Reflexes intact, Cranial nerves intact, Alert, Oriented Psychiatric: Affect appropriate, Mood appropriate Critical Care Note - Critical Care Note Total Time (mins): 0 Course - Course Hematology/Chemistry: 08/27/18 10:12 08/27/18 10:12 Orders, Labs, Meds: Lab Review 08/27/18 08/27/18 08/27/18 10:12 10:12 10:12 WBC 10.31 H RBC 4.41 Hgb 12.8 Hct 36.5 L MCV 82.8 MCH 29.0 MCHC 35.1 RDW Coeff of Consuelo 12.3 Plt Count 202 Immature Gran % (Auto) 0.3 Neut % (Auto) 74.6 Lymph % (Auto) 18.2 [place] % (Auto) 4.7 Eos % (Auto) 1.6 Baso % (Auto) 0.6 Immature Gran # (Auto) 0.0 Neut # (Auto) 7.7 H Lymph # (Auto) 1.9 [place] # (Auto) 0.5 Eos # (Auto) 0.2 Baso # (Auto) 0.1 Sodium 136.5 Potassium 3.44 L Chloride 104.6 Carbon Dioxide 22.5 Anion Gap 12.84 BUN 6.0 L Creatinine 0.44 L Estimated GFR (MDRD) 168.00 BUN/Creatinine Ratio 13.63 Glucose 92.7 Calcium 8.91 Total Bilirubin 0.68 AST 22.1 ALT 20.5 Alkaline Phosphatase 69.9 Total Protein 7.29 Albumin 4.26 Globulin 3.03 Albumin/Globulin Ratio 1.40 Amylase 75.7 Lipase 33.4 Serum , Qual Positive Urine Color Urine Clarity Urine pH Ur Specific [place] Urine Protein Urine Glucose (UA) Urine Ketones Urine Blood Urine Nitrite Urine Bilirubin Urine Urobilinogen Ur Leukocyte Esterase Urine Microscopic WBC Ur Squamous Epith Cells Urine Mucus Urine Opiates Screen Ur Oxycodone Screen Urine Methadone Screen Ur Propoxyphene Screen Ur Barbiturates Screen U Tricyclic Antidepress Ur Phencyclidine Scrn Ur Amphetamine Screen U Methamphetamines Scrn U Benzodiazepines Scrn Urine Cocaine Screen U Cannabinoids Screen 08/27/18 08/27/18 10:12 10:12 WBC RBC Hgb Hct MCV MCH MCHC RDW Coeff of Consuelo Plt Count Immature Gran % (Auto) Neut % (Auto) Lymph % (Auto) [place] % (Auto) Eos % (Auto) Baso % (Auto) Immature Gran # (Auto) Neut # (Auto) Lymph # (Auto) [place] # (Auto) Eos # (Auto) Baso # (Auto) Sodium Potassium Chloride Carbon Dioxide Anion Gap BUN Creatinine Estimated GFR (MDRD) BUN/Creatinine Ratio Glucose Calcium Total Bilirubin AST ALT Alkaline Phosphatase Total Protein Albumin Globulin Albumin/Globulin Ratio Amylase Lipase Serum , Qual Urine Color Yellow Urine Clarity Clear Urine pH 8.5 Ur Specific [place] 1.015 Urine Protein 1+ Urine Glucose (UA) Negative Urine Ketones 2+ Urine Blood Negative Urine Nitrite Negative Urine Bilirubin 1+ Urine Urobilinogen 2.0 Ur Leukocyte Esterase Trace Urine Microscopic WBC 0-2 Ur Squamous Epith Cells 2-5 Urine Mucus 2+ Urine Opiates Screen Negative Ur Oxycodone Screen Negative Urine Methadone Screen Negative Ur Propoxyphene Screen Negative Ur Barbiturates Screen Negative U Tricyclic Antidepress Negative Ur Phencyclidine Scrn Negative Ur Amphetamine Screen Negative U Methamphetamines Scrn Negative U Benzodiazepines Scrn Negative Urine Cocaine Screen Negative U Cannabinoids Screen Positive Orders Category Date Time Status AMYLASE Stat LAB 08/27/18 10:12 Completed CBC W/ AUTO DIFF Stat LAB 08/27/18 10:12 Completed CMP [COMPREHENSIVE METABOLIC PANEL] Stat LAB 08/27/18 10:12 Completed HCG QUALITATIVE [SERUM ] Stat LAB 08/27/18 10:12 Completed LIPASE Stat LAB 08/27/18 10:12 Completed UA [URINALYSIS C & S IF INDICATED] Stat LAB 08/27/18 10:12 Completed URINE DRUG SCREEN (RAPID FOR ED) [DRUG SCREEN, URINE, LAB 08/27/18 10:12 Completed RAPID] Stat 0.9 % Sodium Chloride [Saline Flush] MEDS 08/27/18 10:03 Discontinued 1 syr IVF PRN PRN Ondansetron HCl/Pf [Zofran 4 mg/2 ml] MEDS 08/27/18 11:12 Discontinued 4 mg IVP ONCE STA Potassium Chloride [K-Dur] MEDS 08/27/18 12:31 Discontinued 20 meq PO ONCE STA Potassium Chloride in 0.9%NaCl [Sodium Chloride 0.9%- MEDS 08/27/18 12:29 Discontinued KCl 20 Meq] 1,000 ml IV 250 mls/hr Sodium Chloride 0.9% [Sodium Chloride] 1,000 ml MEDS 08/27/18 10:03 Discontinued IV BOLUS Medications Discontinued Medications Generic Name Dose Route Start Last Admin Trade Name Freq PRN Reason Stop Dose Admin Sodium Chloride 1,000 mls @ 500 mls/hr 08/27/18 10:03 08/27/18 10:18 Sodium Chloride IV 08/27/18 12:02 500 mls/hr BOLUS STA Administration Potassium Chloride/Sodium Chloride 1,000 mls @ 250 mls/hr 08/27/18 12:29 12:52 Sodium Chloride 0.9%-Kcl 20 Meq IV 08/27/18 16:28 Not Given .Q4H STA Ondansetron HCl 4 mg 08/27/18 11:12 08/27/18 11:19 Zofran 4 Mg/2 Ml IVP 08/27/18 11:13 4 mg ONCE STA Administration Potassium Chloride 20 meq 08/27/18 12:31 08/27/18 12:48 K-Dur PO 08/27/18 12:32 20 meq ONCE STA Administration Sodium Chloride 1 syr 08/27/18 10:03 08/27/18 10:18 Saline Flush IVF 1 syr PRN PRN Administration To flush IV Vital Signs: Temp Pulse Resp BP Pulse Ox 08/27/18 09:34 98.3 F 93 H 18 123/71 98 Departure - Departure Time of Disposition: 13:45 Disposition: HOME SELF-CARE Discharge Problem: Hyperemesis gravidarum Instructions: Hyperemesis Gravidarum (ED) Condition: Good Pt referred to PMD for follow-up: Yes (next week) IPMP verified?: No Additional Instructions: maintain good oral fluid intake May take Zofran as needed for Nausea/vomiting Return to ER prn recurrent symptoms Prescriptions: Ondansetron [Zofran Odt] 4 mg PO Q8H PRN #7 tab.rapdis PRN Reason: Nausea / Vomiting Allergies/Adverse Reactions: Allergies No Known Allergies Allergy (Verified 08/27/18 09:40) Home Medications: Ambulatory Orders Ondansetron [Zofran Odt] 4 mg PO Q8H PRN #7 tab.rapdis 08/27/18 21/Iron Fu/Folic Acid [ Complete Caplet] 1 each PO 09/27/18 Disposition Discussed With: Patient
[2018-08-27] MEDS: SODIUM CHLORIDE 1,000 ML IV STA (10:18)
[2018-08-27] MEDS: ZOFRAN 4 MG/2 ML IVP STA (11:19)
[2018-08-27] MEDS: K-DUR PO STA (12:48)
[2018-08-27] MEDS: SODIUM CHLORIDE 0.9%-KCL 20 MEQ 1,000 ML IV STA (12:52)
== END 2018-08-27 14:21 | disposition home or self-care (01) ==
LOC: ED 09:34
DX: O21.0 Mild hyperemesis gravidarum (principal); Z3A.00 Weeks of gestation of pregnancy not specified
CPT/HCPCS: 36415; 80053; 80306; 81001; 82150; 83690; 84703; 85025; 96361; 96374; 99283

== ENCOUNTER 2018-09-18 12:21 | Outpatient (CLI) | END 2018-09-18 12:22 | disposition home or self-care (01) | LOC: RHC-LAB 12:21 | PROVIDERS: ATTEND Nurse Practitioner Family | DX: R05 Cough (principal) | CPT/HCPCS: 87502; 87651 ==